=== PATIENT | female | born 1940 | race Caucasian/White ===

== ENCOUNTER 2017-01-09 19:30 | Emergency (ER) | payer MEDICARE, BC | END 2017-01-09 21:40 | disposition home or self-care (01) | LOC: ER 19:30 | DX: E86.0 Dehydration (principal); R42 Dizziness and giddiness; R53.1 Weakness; F17.210 Nicotine dependence, cigarettes, uncomplicated; Z85.3 Personal history of malignant neoplasm of breast; Z79.899 Other long term (current) drug therapy | CPT/HCPCS: 36415; 96360 ==

== ENCOUNTER 2017-03-07 11:02 | Emergency (ER) | payer MEDICARE, BC | END 2017-03-07 14:41 | disposition home or self-care (01) | LOC: ER 11:02 | DX: R42 Dizziness and giddiness (principal); R19.7 Diarrhea, unspecified; J44.9 Chronic obstructive pulmonary disease, unspecified; F17.210 Nicotine dependence, cigarettes, uncomplicated; N18.9 Chronic kidney disease, unspecified; Z90.11 Acquired absence of right breast and nipple; Z79.899 Other long term (current) drug therapy; Z88.1 Allergy status to other antibiotic agents | CPT/HCPCS: 36415; 96360 ==